=== PATIENT | male | born 1960 | race Two or more races ===

== ENCOUNTER 2019-12-31 09:08 | Emergency (ER) | payer BC, MEDICAID ==
[~2019-12-31] VITALS: Ht 175.3 cm; Wt 90.0 kg
[2019-12-31] MEDS ORDERED: TETANUS, DIPHTHERIA, PERTUSSIS VAC/PF 0.5ML (>7YR OLD) IM ONE (10:00)
[2019-12-31] MEDS ORDERED: IBUPROFEN 600MG TABLET PO ONE (10:00)
[2019-12-31] MEDS ORDERED: BACITRACIN ZINC OINT UDPKT TOP ONE (11:00)
[2019-12-31] MEDS ORDERED: CEPHALEXIN 250MG CAPSULE PO ONE (11:00)
[2019-12-31 12:34] VITALS: BP 163/81
== END 2019-12-31 12:39 | disposition home or self-care (01) ==
LOC: ER 09:08
DX: S68.125A Partial traumatic metacarpophalangeal amputation of left ring finger, initial encounter (principal); W26.8XXA Contact with other sharp object(s), not elsewhere classified, initial encounter; Y93.89 Activity, other specified; Y92.89 Other specified places as the place of occurrence of the external cause; I10 Essential (primary) hypertension; Z23 Encounter for immunization
CPT/HCPCS: 73130; 90471; 90715; 99284